=== PATIENT | female | born 1935 | race Caucasian/White ===

== ENCOUNTER 2017-11-07 22:05 | Inpatient (IN) | payer OTHER, MEDICAID ==
[~2017-11-07] VITALS: Ht 152.4 cm; Wt 77.3 kg
--- NOTE | ~2017-11-07 | WRIGHTHP ---
[place], [place] PATIENT HISTORY AND PHYSICAL EXAM NAME: RANJITH BELLE UNIT #: [id number] ROOM: 505 DOCTOR: SERGIO JENKINS MD BIRTHDATE: [birth year] DOS: 11/07/2017 HISTORY OF PRESENT ILLNESS: The patient states that she has been feeling poorly for the last few days with a low-grade fever. The patient denies having any chest pains, palpitations. Does not have any abdominal pain, nausea or any emesis. The patient came into the Emergency Room with a temperature 102.7, was noted to have an elevated white count of 18,000, was admitted with diagnosis of possible sepsis. The patient this morning is resting comfortably in no distress. PAST MEDICAL HISTORY: Significant for: 1. Benign hypertension. 2. Chronic lymphedema. 3. History of transient ischemic attack. MEDICATIONS: She is currently on are aspirin 325, Bumex 2 mg, KCl 10, lisinopril 20, lovastatin 10. SOCIAL HISTORY: Nonsmoker, does not use any alcohol. PHYSICAL EXAMINATION: GENERAL: She is awake and alert and oriented. VITAL SIGNS: Graph trend shows that she is febrile, T-max of 102.7, blood pressure 132/70, pulse of 86, respirations 14. LUNGS: Diminished breath sounds. HEART: Regular. CHEST: Lungs are clear. HEART: Regular. ABDOMEN: Obese, soft, nontender. EXTREMITIES: Bilateral lymphedema with excoriation of the skin with some mild cellulitis. The left lower leg appears to be bigger than the right one. ASSESSMENT AND PLAN: 1. Fever, elevated white cell count with possible sepsis. Blood cultures and urine cultures have been sent. The patient is placed on IV fluids and IV antibiotics. 2. Benign hypertension, controlled. Restart medications. 3. Stage 3 renal failure, possibly from the Bumex that she is on. We will discontinue Bumex and potassium supplementation will be given IV. [place], [place] PATIENT HISTORY AND PHYSICAL EXAM NAME: RANJITH BELLE UNIT #: [id number] ROOM: 505 DOCTOR: SERGIO JENKINS MD BIRTHDATE: [birth year] SERGIO JENKINS MD CM:HISPHYS:PATIENT HISTORY AND PHYSICAL EXAMINATION [id number] SERGIO JENKINS MD 11/08/17 1004 interface
--- NOTE | ~2017-11-07 | DS ---
[place], [place] DISCHARGE SUMMARY NAME: RANJITH BELLE [facility] #: [id number] UNIT #: [id number] ROOM: 505 DOCTOR: SERGIO JENKINS MD BIRTHDATE: [birth year] DOS: 11/10/2017 DIAGNOSES: 1. Elevated white cell count with fever, diagnosis of sepsis which has been ruled out with negative blood cultures. 2. Adult failure to thrive. 3. Benign hypertension. 4. Acute kidney disease. 5. Chronic lymphedema. HOSPITAL COURSE: This patient is 82 years old. The patient is very well known to us, comes in with fever, chills. Please refer H and P for details of the evaluation in the emergency room. The patient was admitted with sepsis. Cultures were both sent of urine and blood. These have come back negative. The patient was placed on IV antibiotics and IV fluids. Bumex was discontinued. Her white cell count is normalized. Her kidney functions have improved, so the IV fluids have been discontinued. The rapid flu was negative. She did have significant swelling of the left lower leg more than the right, so a venous Doppler was done, which showed no DVT. This morning, the patient was evaluated by PT who feels that she would benefit from skilled, but has refused. She has been walking with therapist here. We will discharge her to home today and consult the visiting nurses for home therapy. SERGIO JENKINS MD CM:DISCHARG [id number] SERGIO JENKINS MD 11/10/17 0934 interface
--- NOTE | ~2017-11-07 | PR ---
[place], [place] PROGRESS NOTE [id number] UN[facility] #: [id number] ROOM: 505 DOCTOR: LISA GARBER,LORAINE Lema BIRTHDATE: [birth year] DOS: 11/10/2017 SUBJECTIVE: The patient is doing fine. She does not have any complaints today. PHYSICAL EXAMINATION: VITAL SIGNS: Blood pressure is 141/88, pulse of 70, respirations 18, temperature 98.2. LUNGS: Clear. HEART: Regular. ABDOMEN: Obese, soft, nontender. EXTREMITIES: Decreased edema. LABORATORY DATA: White cell count is normalized. Kidney functions have normalized. Blood cultures showed no bacterial growth and urinalysis was culture but looks like it has never been sent. ASSESSMENT AND PLAN: 1. The patient with sepsis, which has been ruled out with negative blood cultures. 2. Acute kidney disease, possibly from a combination of dehydration and sepsis. The labs have improved. 3. Adult failure to thrive. The patient did walk with physical therapy. She has refused [place] [facility]. The plan therefore is to discharge her to home today. LORAINE GONZALEZ MD CM:PNTRANS [id number] LORAINE GONZALEZ MD 11/10/17 1516 interface
--- NOTE | ~2017-11-07 | PR ---
[place], [place] PROGRESS NOTE NAME: RANJITH BELLE [facility] #: [id number] UNIT #: [id number] ROOM: 505 DOCTOR: SERGIO JENKINS MD BIRTHDATE: [birth year] DOS: SUBJECTIVE: The patient is about the same, does not have any new complaints. She feels better. OBJECTIVE: VITAL SIGNS: Blood pressure is 137/76, pulse of 69, respirations 18, temperature 97.6. LUNGS: Clear. HEART: Regular. ABDOMEN: Obese, soft. EXTREMITIES: Without any edema. LABORATORY DATA: Glucose 82, BUN 15, creatinine 0.74, sodium 141, potassium 3.4, chloride 109, bicarbonate 26, calcium 8.2. WBC count is 8.7, hemoglobin 8.8, hematocrit 27.3, platelets 157. Ultrasound of the lower legs, no DVT. ASSESSMENT AND PLAN: 1. Elevated white cell count, fever, possible sepsis. Cultures are all pending. With antibiotics, patient's white cell count has improved, the fevers have subsided. 2. Acute kidney disease, possibly from sepsis versus dehydration versus acute tubular necrosis. Bumex is on hold and with IV fluids have been given the kidney functions have normalized. 3. Hypokalemia. Continue potassium in the IV. SERGIO JENKINS MD CM:PNTRANS [phone] SERGIO JENKINS MD 11/09/17 1105 interface
[2017-11-07 22:05] VITALS: BP 170/80
[~2017-11-07 22:05] MED LIST: ALENDRONATE SOD70 M1 PO; ASPIR-TRIN325 MG PO; BACTRIM DS 8001 TA1 PO; BUMETANIDE2 MG PO; CALCIUM WITH VI1 TAB PO; FISH OIL 1,2001 EAC1 PO; KCL PO; METOPROLOL SUC100 M2 PO; PRESERVISION1 SGL; PRINIVIL20 MG PO
[2017-11-07 22:54] LABS: HEMATOCRIT 34.4 % (37.0-47.0); HEMOGLOBIN 11.2 g/dl (12.0-16.0); MEAN CORPUSCULAR HGB CONC 32.6 g/dl (33.0-37.0); MEAN PLATELET VOLUME 9.9 fl (9.6-12.3); PLATELET COUNT AUTOMATED 213 10*3/uL (130-400); RED CELL DISTRI WIDTH 13.3 % (0-14.5); WHITE BLOOD COUNT 18.1 10*3/uL (4.8-10.8)
[2017-11-07 23:04] LABS: BILIRUBIN NEGATIVE (NEGATIVE); BLOOD TRACE-LYSED (NEGATIVE); CLARITY CLEAR (CLEAR); COLOR YELLOW (YELLOW); GLUCOSE NEGATIVE (NEGATIVE); KETONE 1+ (NEGATIVE); LEUKO ESTERASE NEGATIVE (NEGATIVE); NITRITE NEGATIVE (NEGATIVE); PH 7.5 (5.0-9.0); UROBILINOGEN 0.2 E.U./dl (0.2-1.0)
[2017-11-07 23:11] LABS: ALBUMIN 3.2 gm/dl (3.1-4.5); ALKALINE PHOSPHATASE 72 U/L (45-117); BUN 25 mg/dl (7-24); CHLORIDE 99 mmol/L (98-107); CREATININE 1.09 mg/dL (0.55-1.02); LIPASE 159 U/L (73-393); POTASSIUM 3.3 mmol/L (3.5-5.1); SGOT/AST 19 IU/L (3-35); SGPT/ALT 15 U/L (12-78); SODIUM 138 mmol/L (136-145); TOTAL PROTEIN 7.8 gm/dL (6.4-8.2)
[2017-11-07 23:12] LABS: PLATELET SUFFICIENCY NORMAL (NORMAL); TOTAL CELLS COUNTED 100 #CELLS
[2017-11-07 23:14] LABS: TROPONIN I < 0.015 ng/ml (<0.045)
[2017-11-07 23:27] LABS: BACTERIA TRACE
[2017-11-08 01:30] VITALS: BP 104/50
[2017-11-08] MEDS ORDERED: VITAMIN D31000 UNI1 PO (01:53)
[2017-11-08] MEDS ORDERED: LOVASTATIN10 MG PO (01:57)
[2017-11-08] MEDS ORDERED: VITAMIN B-122000 MCG PO (02:00)
[2017-11-08 08:00] VITALS: BP 99/46
[2017-11-08 12:00] VITALS: BP 99/42
[2017-11-08 16:00] VITALS: BP 95/46
[2017-11-08 19:45] VITALS: BP 98/48
[2017-11-09] VITALS: BP 133/79; BP 98/49
[2017-11-09 07:14] LABS: BASO % 0.1 % (0.0-1.0); HEMATOCRIT 27.3 % (37.0-47.0); HEMOGLOBIN 8.8 g/dl (12.0-16.0); LYMPH % 11.4 % (27.0-41.0); MEAN CELL VOLUME 87.2 fl (81.0-99.0); MEAN CORPUSCULAR HGB 28.1 pg (27.0-31.0); MEAN CORPUSCULAR HGB CONC 32.2 g/dl (33.0-37.0); MEAN PLATELET VOLUME 10.2 fl (9.6-12.3); MONO # 0.7 10*3/uL (0.1-1.0); MONO % 8.4 % (3.0-9.0); NEUT # 6.9 10*3/uL (2.3-7.9); NEUT % 79.8 % (47.0-73.0); PLATELET COUNT AUTOMATED 157 10*3/uL (130-400); RED BLOOD COUNT 3.13 10*6/uL (4.10-5.10); RED CELL DISTRI WIDTH 14.1 % (0-14.5); WHITE BLOOD COUNT 8.7 10*3/uL (4.8-10.8)
[2017-11-09 07:33] LABS: CHLORIDE 109 mmol/L (98-107); CREATININE 0.74 mg/dL (0.55-1.02); POTASSIUM 3.4 mmol/L (3.5-5.1); SODIUM 141 mmol/L (136-145)
[2017-11-09 07:43] LABS: BUN 15 mg/dl (7-24)
[2017-11-09 08:00] VITALS: BP 137/76
[2017-11-09 12:00] VITALS: BP 106/52
[2017-11-09 16:00] VITALS: BP 138/83
[2017-11-09 20:00] VITALS: BP 126/66
[2017-11-10] VITALS: BP 124/64
[2017-11-10 08:00] VITALS: BP 141/88
[2017-11-10] MEDS ORDERED: CEFUROXIME AXE250 MG PO (08:43)
== END 2017-11-10 14:54 | disposition home health service (06) | DRG 684 ==
LOC: ED 22:05 → EDHOLD 23:56 → 5E 23:56
PROVIDERS: Emergency Medicine Emergency Medical Services; Internal Medicine
DX: N17.9 Acute kidney failure, unspecified (principal); E87.6 Hypokalemia; R62.7 Adult failure to thrive; I10 Essential (primary) hypertension; I89.0 Lymphedema, not elsewhere classified; Z86.73 Personal history of transient ischemic attack (TIA), and cerebral infarction without residual deficits; Z79.82 Long term (current) use of aspirin; Z79.899 Other long term (current) drug therapy

== ENCOUNTER 2019-03-21 14:24 | Inpatient (IN) | payer OTHER, MEDICAID ==
[~2019-03-21] VITALS: Ht 152.4 cm; Wt 79.4 kg
--- NOTE | ~2019-03-21 | PR ---
[place], [place] PROGRESS NOTE NAME: RANJITH BELLE [facility] #: [id number] UNIT #: [id number] ROOM: 419 DOCTOR: SERGIO JENKINS MD BIRTHDATE: [birth year] DOS: 03/23/2019 SUBJECTIVE: The patient is in some discomfort this morning. She does not have any new complaints. OBJECTIVE: VITAL SIGNS: Graphic trend shows a pressure 106/63, pulse is 77, respirations 18, temperature 97.9. LUNGS: Diminished breath sounds. Clear. HEART: Regular. ABDOMEN: Obese, soft, nontender. EXTREMITIES: Without any edema. Chronic lymphedema noted. DIAGNOSTIC STUDIES: A CT scan of the lumbar spine showed mildly comminuted nondisplaced multiple fractures of the sacrum with degenerative joint disease. ASSESSMENT AND PLAN: 1. Acute lumbago after a fall from multiple sacral fractures. The patient's pain control is achieved with multiple medications. 2. Adult failure to thrive, may require short-term placement for rehab. The patient is refusing right now. PT evaluation has not been performed yet, we will see what they decide on. 3. Urinary tract infection. Urine culture is negative. Blood work was normal. SERGIO JENKINS MD CM:PNTRANS [id number] SERGIO JENKINS MD 03/24/19 0525 interface
--- NOTE | ~2019-03-21 | DS ---
[place], [place] DISCHARGE SUMMARY NAME: RANJITH BELLE [facility] #: [id number] UNIT #: [id number] ROOM: 419 DOCTOR: SERGIO JENKINS MD BIRTHDATE: [birth year] DOS: HOSPITAL COURSE: The patient is 83 years old, very well known to us, had a fall at home. Please refer to H and P for details. Was seen in the Emergency Room, X-rays were negative, came to the office, continued meds, was admitted with possibility of compression fracture. After admission, the patient had a CT of the lumbar spine, which did show multiple comminuted nondisplaced sacral fractures. The patient was treated conservatively with pain medications. Social service and PT/OT were consulted. The patient's PT did state that the patient would benefit from SNF placement. The patient has steadfastly refused it and has no intention to go to SNF and this morning, she feels fairly good. She is ambulating with a cane and wants to go home. DISCHARGE PLAN: Arrangements will be made for visiting nurses for home OT, PT and nursing care. Home medications remain the same. I have not given her any new medicines. I have not given her any pain medications because she has refused to take any here, so she will take Tylenol as an outpatient. SERGIO EJNKINS MD CM:DISCHARG [phone] SERGIO JENKINS MD 04/17/19 0125 interface
--- NOTE | ~2019-03-21 | PR ---
[place], [place] PROGRESS NOTE NAME: RANJITH BELLE [facility] #: [id number] UNIT #: [id number] ROOM: 419 DOCTOR: SERGIO JENKINS MD BIRTHDATE: [birth year] DOS: 03/25/2019 SUBJECTIVE: The patient is doing well, does not have any new complaints. PHYSICAL EXAMINATION: GENERAL: She is awake and alert and oriented. VITAL SIGNS: Blood pressure is 97/50, pulse of 59, respirations 18, temperature 98.4. LUNGS: Clear. HEART: Regular. ABDOMEN: Obese, soft, nontender. EXTREMITIES: Without any edema. BACK: Examination of her back is pretty much the same. Her pain is controlled. She is not taking any medicines at all. ASSESSMENT AND PLAN: Compression fracture of the sacrum with difficulty to ambulate and adult failure to thrive. She was awaiting placement, but she has refused to go to rehab and wants to go home. Visiting nurses will be consulted and the patient will be discharged today from [facility], PT, OT at home. SERGIO JENKINS MD CM:PNTRANS [phone] SERGIO JENKINS MD 03/25/19 0958 interface
--- NOTE | ~2019-03-21 | WRIGHTHP ---
[place], [place] PATIENT HISTORY AND PHYSICAL EXAM NAME: RANJITH BELLE [facility] #: [id number] UNIT #: [id number] ROOM: 419 DOCTOR: SERGIO JENKINS MD BIRTHDATE: [birth year] DOS: 03/21/2019 HISTORY OF PRESENT ILLNESS: The patient is 83 years old. The patient says that she was out taking her garbage out for some unknown reason. She fell backwards and developed acute pain in her back. She came to the Emergency Room on the with the complaints and x-rays were done and she did not have a fracture and she was sent home. The patient states that she has been continuing to get worse for the last several days, unable to ambulate and is now sitting in a wheelchair when she came into the office. She has significant pain and making it difficult for her to rest and she was brought in by friends. She does not have any chest pains, palpitations. Does not have any fever or chills. Does not have any abdominal pain, nausea, emesis. Does not have any urinary symptoms. Does not have any numbness or tingling of the lower legs. PAST MEDICAL HISTORY: Significant for: 1. Benign hypertension. 2. History of cerebrovascular accident. 3. Chronic lymphedema. 4. Mixed hyperlipidemia. MEDICATIONS: Bumex 2 mg, potassium 10, lisinopril 20, lovastatin 20, alendronate 70 once weekly, aspirin 325. SOCIAL HISTORY: Nonsmoker, does not use any alcohol. Lives at home alone. She has a dog, stays with her. She has 1 son who is grown. PHYSICAL EXAMINATION: GENERAL: She is awake and alert and oriented. VITAL SIGNS: Blood pressure is 129/60, pulse of 64, respirations 16, temperature 97.5. NECK: Supple. No lymph nodes. HEENT: Unremarkable. LUNGS: Diminished breath sounds. Clear. HEART: Regular. ABDOMEN: Obese, soft, nontender. EXTREMITIES: Without any edema other than chronic lymphedema that is noted. She has complaints of severe pain in the lower back. Lumbar and thoracic area diffusely tender. ASSESSMENT AND PLAN: 1. Acute lumbago following a fall, most likely from compression fracture. X-rays were negative, but we will go ahead and arrange for a CT of the lumbar spine. 2. Pain medications have been ordered. 3. Adult failure to thrive. She has been unable to ambulate at home and take care of herself, may require short-term placement. PT/OT and Social service has been consulted. 4. Benign hypertension, controlled. 5. Chronic lymphedema. Already on diuretics, which are being continued. Labs noted from yesterday. [place], [place] PATIENT HISTORY AND PHYSICAL EXAM NAME: RANJITH BELLE UNIT #: [id number] ROOM: 419 DOCTOR: SERGIO JENKINS MD BIRTHDATE: [birth year] SERGIO JENKINS MD CM:HISPHYS:PATIENT HISTORY AND PHYSICAL EXAMINATION 5 6 SERGIO JENKINS MD 03/22/19 0919 interface
[~2019-03-21 14:24] MED LIST changes: +CEFUROXIME AXE250 MG PO; +LOVASTATIN10 MG PO; +TYLENOL325 M1 PO; +VITAMIN B-122000 MCG PO; +VITAMIN D31000 UNI1 PO
[2019-03-21 14:25] VITALS: BP 151/70
[2019-03-21 14:43] LABS: HEMOGLOBIN 12.7 g/dl (12.0-16.0)
[2019-03-21 15:01] LABS: BUN 18 mg/dl (7-24); CHLORIDE 104 mmol/L (98-107); CREATININE 0.82 mg/dL (0.55-1.02); POTASSIUM 3.5 mmol/L (3.5-5.1); SODIUM 140 mmol/L (136-145)
[2019-03-21 15:05] LABS: BASO % 0.3 % (0.0-1.0); HEMATOCRIT 38.2 % (37.0-47.0); LYMPH # 1.5 10*3/uL (1.3-4.4); LYMPH % 21.1 % (27.0-41.0); MEAN CELL VOLUME 88.4 fl (81.0-99.0); MEAN CORPUSCULAR HGB 29.4 pg (27.0-31.0); MEAN CORPUSCULAR HGB CONC 33.2 g/dl (33.0-37.0); MEAN PLATELET VOLUME 10.2 fl (9.6-12.3); MONO # 0.8 10*3/uL (0.1-1.0); MONO % 10.7 % (3.0-9.0); NEUT # 4.8 10*3/uL (2.3-7.9); NEUT % 67.5 % (47.0-73.0); PLATELET COUNT AUTOMATED 215 10*3/uL (130-400); RED BLOOD COUNT 4.32 10*6/uL (4.10-5.10); RED CELL DISTRI WIDTH 14.7 % (0-14.5); WHITE BLOOD COUNT 7.1 10*3/uL (4.8-10.8)
[2019-03-21 15:35] LABS: BILIRUBIN NEGATIVE (NEGATIVE); BLOOD NEGATIVE (NEGATIVE); CLARITY CLEAR (CLEAR); COLOR YELLOW (YELLOW); GLUCOSE NEGATIVE (NEGATIVE); KETONE NEGATIVE (NEGATIVE); LEUKO ESTERASE 1+ (NEGATIVE); NITRITE NEGATIVE (NEGATIVE)
[2019-03-21 15:43] LABS: BACTERIA 2+
[2019-03-21 15:44] LABS: WBC 16-20 wbc/hpf (0-5)
--- NOTE | 2019-03-21 15:58 | NUR ---
THE PT IS A&OX4 AND DENIES ANY WOUNDS. HER FEET WERE EXAMINED WITH NO WOUNDS NOTED
--- NOTE | 2019-03-21 16:27 | NUR ---
THE PT RECIEVED HER MEAL TRAY
[2019-03-21 16:40] VITALS: BP 140/74
--- NOTE | 2019-03-21 17:20 | NUR ---
Time: 1719 A 83 year old FEMALE admitted to under services of DR. GREGORY GARBER,SERGIO. Pt. arrived via stretcher from ER. Chief complaint: INABILITY TO AMBULATE/BACK PAIN. COMPA BELLE
[2019-03-21 17:30] VITALS: BP 155/69
--- NOTE | 2019-03-21 19:11 | NUR ---
KPAD TAKEN INTO ROOM, PT REFUSES AT THIS TIME. SHE STATES HEAT WASN'T WORKING AT HOME. MACHINE LEFT IN ROOM AT BEDSIDE. WILL OFFER AGAIN AT ANOTHER TIME.
[2019-03-21 20:00] VITALS: BP 112/52
--- NOTE | 2019-03-21 20:02 | NUR ---
ASSISTED TO RESTROOM WITH SHAJI GAONA. PATIENT C/O PAIN BUT REFUSES ANY PAIN MEDICATION. SON AT BEDSIDE. BED IN LOWEST POSITION, CALL LIGHT IN REACH
--- NOTE | 2019-03-21 23:19 | NUR ---
ASSUMED CARE OF PT AT THIS TIME. PATIENT C/O PAIN IN BACK, BUT IS REFUSING TO TAKE ANY MEDICATIONS OFFERED. ALSO REFUSING TO USE KPAD. RN EDUCATED PT ON AVAILABLE PRN MEDICATIONS AND TO USE CALL LIGHT TO NOTIFY RN IF SHE CHANGED HER MIND. PT ALSO OFFERED TUBIGRIPS FOR BLL EDEMA. STATES SHE WILL CONSIDER WEARING THEM IN THE AM. WILL MONITOR.
[2019-03-22] VITALS: BP 129/60
--- NOTE | 2019-03-22 04:26 | NUR ---
PATIENT ASSISTED OOB UP INTO BATHROOM AND BACK INTO BED. PT REQUIRES AT LEAST A 2 ASSIST SHE IS VERY WEAK. PATIENT REPOSITIONED IN BED FOR COMFORT. PT STILL DENIES NEED FOR PAIN MEDICATION, EVEN THOUGH SHE IS C/O PAIN. BED LEFT LOCKED IN LOW POSITION, BED ALARM INTACT, CALL LIGHT IN REACH.
--- NOTE | 2019-03-22 06:27 | NUR ---
MRI PAPERWORK FILLED OUT PER POLICY. PATIENT STATES SHE HAS A STEEL PLATE AND 9 SCREWS IN RLE. ATTEMPTED TO CALL MRI TO UPDATE THEM ON THIS. NO ANSWER. WILL NOTIFY .
--- NOTE | 2019-03-22 07:28 | NUR ---
MESSAGE LEFT WITH MRI REGARDING PT'S SCHEDULED TEST. CALL BACK NUMBER & AM SHIFT RN NAME ALSO LEFT.
[2019-03-22 08:00] VITALS: BP 119/63
--- NOTE | 2019-03-22 10:57 | NUR ---
DR JENKINS NOTIFIED OF CT SCAN RESULTS.
[2019-03-22 12:00] VITALS: BP 129/70
--- NOTE | 2019-03-22 13:30 | NUR ---
Non Destructive Testing Supervisor in to talk to patient. Patient states lives at home alone with her son occasionally checking in on her. There are 0 steps in the home. Physician: Dr. Mica Grant Pharmacy: [facility] health services: would like [facility] on discharge Patient's level of ADLs: MINIMAL ASSIST Patient has working utilities: yes DME: cane, walker Follow-up physician's appointment after d/c: she prefers to make her own follow up appt after discharge Does patient want to access PORTAL?: no Discharge plan discussed with patient. She lives at home alone with her son occasionally checking in on her. She is independent in her ADLs and ambulates with either a cane or walker. Discussed short term SNF and she refuses as she has a dog at home. Discussed home health care services and she is agreeable. When provided with a list of agencies she chose [facility]. When medically stable she will be discharged to home with [facility] services. NOEMY DOWLING
--- NOTE | 2019-03-22 14:59 | NUR ---
Pt was approached for PT evaluation and reports she is in "too much pain" to attempt with request for evaluation to be completed at later date. Elizabeth Evans, PT
[2019-03-22 16:00] VITALS: BP 127/81
--- NOTE | 2019-03-22 19:33 | NUR ---
PATIENT RESTING IN BED WITH VISITORS AT BEDSIDE. REFUSING PAIN MEDICATION AT THIS TIME DESPITE C/O PAIN IN BACK. BED IN LOWEST POSITION, CALL LIGHT IN REACH
[2019-03-22 20:00] VITALS: BP 148/57
[2019-03-23] VITALS: BP 106/63
--- NOTE | 2019-03-23 00:35 | NUR ---
PATIENT RESTING IN BED WITH NO S/S OF DISTRESS. BED IN LOWEST POSITION, BED ALARM ON, CALL LIGHT IN REACH
--- NOTE | 2019-03-23 00:44 | NUR ---
24 HR chart check completed.
--- NOTE | 2019-03-23 01:19 | NUR ---
MEDICATED WITH PRN TYLENOL FOR C/O PAIN. WILL MONITOR
--- NOTE | 2019-03-23 06:05 | NUR ---
PATIENT RESTING WITH NO S/S OF DISTRESS. BED IN LOWEST POSITION, CALL LIGHT IN REACH
--- NOTE | 2019-03-23 07:18 | NUR ---
PHYSICAL THERAPY Nursing screen received. PT orders also received. Thank you. María Mcdonald,PT
[2019-03-23 08:00] VITALS: BP 123/59
--- NOTE | 2019-03-23 09:12 | NUR ---
PHYSICAL THERAPY Patient evaluated on 4, full evaluation to follow. Continue with PT as per plan of care with fall, sacral fractures with lumbar/sacral pain radiating to left LE and acute debility precautions. Will require SNF. PAtient is moderate complexity via chart review, tests and evaluation: [id number]. Thank you for this referral. María Mcdonald,PT
--- NOTE | 2019-03-23 09:15 | NUR ---
Patient evaluated on 4TH floor with full eval to follow. for occupational therapy services. Preacuations: fall risk, alarms, sacral fxs with lumber/sacral pain. moderate complexity level 82790. Recommend SNF. Work on functional mobility, bed mobility, and balance. THank you for this referral, Kim Kaminski OTR/L
--- NOTE | 2019-03-23 10:00 | NUR ---
Shoe Folder in to see patient. Discussed short term SNF and she refuses. Discussed home health care services and she is agreeable. When provided with a list of agencies she chose [facility]. When medically stable she will be discharged to home with [facility] services.
[2019-03-23 12:00] VITALS: BP 111/58
--- NOTE | 2019-03-23 14:24 | NUR ---
Called to patient's room. Patient adamantly refuses SNF. She states she wants to go home and take care of her dog. She remains agreeable to home health care services.
[2019-03-23 16:00] VITALS: BP 105/61
--- NOTE | 2019-03-23 17:06 | NUR ---
PT RESTING IN BED WITH NO SIGNS OF DISTRESS. VITAL SIGNS STABLE. PT ADAMENT THAT SHE IS NOT GOING TO SNF. VSS. WILL CONTINUE TO MONITOR.
--- NOTE | 2019-03-23 19:36 | NUR ---
PATIENT RESTING IN BED WITH NO NEEDS MADE. REFUSING PAIN MEDICATION AT THIS TIME. WILL MONITOR. BED IN LOWEST POSITION,CALL LIGHT IN REACH
[2019-03-23 20:00] VITALS: BP 91/48
[2019-03-23 20:19] VITALS: BP 110/52
[2019-03-24] VITALS: BP 118/62
--- NOTE | 2019-03-24 01:28 | NUR ---
PATIENT RESTING IN BED WITH EYES CLOSED. RESPS EASY AND REGULAR. NO S/S OF DISTRESS. BED IN LOWEST POSITION, BED ALARM ON, CALL LIGHT IN REACH
[2019-03-24 08:00] VITALS: BP 95/56
--- NOTE | 2019-03-24 08:00 | NUR ---
Discussed with Dr. Grant patient's request for a hospital bed and required documentation.
--- NOTE | 2019-03-24 09:00 | NUR ---
Doctor Of Chiropractic in to see patient. Discussed short term SNF and she adamantly refuses. She remains agreeable to home health care services. When medically stable she will be discharged to home with [facility] services.
[2019-03-24 12:00] VITALS: BP 92/48
--- NOTE | 2019-03-24 13:45 | NUR ---
PHYSICAL THERAPY Patient seen this pm 1:1 for therapy visit and was supine in bed upon therapist arrival. Patient presents with increased L LE edema and reports no c/o's pain at rest. Patient transfers supine to sit EOB Mod A and tolerates static EOB sit x several minutes, SBA. Patient then performed several sit to stand transfers, RELIEF PHARMACIST/MOD prior to ambulating RELIEF PHARMACIST/MOD, 10'x 1, demonstrating very cautious, antalgic gait pattern. Patient very unsteady during 180 degree turn and fatigues quickly upon return to bed. Patient remained supine in bed with call light, tray table, telephone and bed alarm for safety. Will continue per POC as tolerated, total treatment time 14 minutes. Cleve Balbuena, SHANK MAKER
--- NOTE | 2019-03-24 13:54 | NUR ---
Spoke to Mirna from [facility] regarding home health order. She is able to look in [employer] for the information she needs. Will fax face to face when available.
--- NOTE | 2019-03-24 14:00 | NUR ---
OT NOTE Pt was seen this P.M. 1:1 for 15 minute OT session. Upon arrival pt was supine in bed. Pt identified by name and and had complaints of 5/10 low back pain. Pt presented to therapy with mod edema in LLE and min edema in RLE. Pt transferred supine to sit EOB with Theo for assist with BLE. Sit to stand completed from bed level with Theo PLUMBER MAINTENANCE. Challenged pt's static standing tolerance needed for increased I in self care tasks and functional transfers. Pt was able to tolerate aprox 2 minutes before sitting due to fatigue. Functional mobility completed to the bedside commode and back with modA PLUMBER MAINTENANCE. Pt transferred back into bed sit to supine with modA and maxA X 2 for repositioning in bed. Pt was left supine in bed with call light in hand, tray table in place, and bed alarm activated for safety. Continue with rec D/C plan to SNF. PRECIOUS Guerra/Malgorzata
--- NOTE | 2019-03-24 15:10 | NUR ---
Received call from Mirna at [facility]. Patient's [employer] insurance is up today. Spoke to patient regarding renewing insurance and she forgot all about it. She wants to continue it and will pay it when she gets her check. Asked Mirna if she could use her [place] Medicaid. Mirna checking into it.
[2019-03-24 15:50] VITALS: BP 98/54
[2019-03-24 16:00] VITALS: BP 98/50
[2019-03-24 20:00] VITALS: BP 100/44; BP 100/50
--- NOTE | 2019-03-24 20:15 | NUR ---
24 HOUR CHART CHECK COMPLETE.
[2019-03-25] VITALS: BP 97/50
--- NOTE | 2019-03-25 08:30 | NUR ---
Patient resting quietly with no c/o discomfort. Respirations easy and regular. Vital signs stable. No overt distress. COMPA BELLE R
[2019-03-25 08:33] VITALS: BP 135/60
[2019-03-25 11:54] VITALS: BP 136/61
--- NOTE | 2019-03-25 13:37 | NUR ---
Discharge instructions reviewed with patient/family. Patient receptive and verbalizes understanding. Follow-up care arranged. Written instructions given to patient/family. COMPA BELLE
--- NOTE | 2019-03-27 07:35 | NUR ---
PHYSICAL THERAPY CO-SIGN I approve of the Phyical Therapy notes written above. DENTON MURRELL PT
--- NOTE | 2019-03-27 08:07 | NUR ---
OCCUPATIONAL THERAPY CO-SIGN I approve of the Occupational Therapy notes written above. SPRING MATHEW OTR/Malgorzata
== END 2019-03-25 01:29 | disposition home health service (06) | DRG 552 ==
LOC: ED 14:24 → EDHOLD 14:42 → 4E 14:42
PROVIDERS: Emergency Medicine; ADMIT Internal Medicine
DX: S32.10XA Unspecified fracture of sacrum, initial encounter for closed fracture (principal); N39.0 Urinary tract infection, site not specified; I10 Essential (primary) hypertension; W18.39XA Other fall on same level, initial encounter; E78.2 Mixed hyperlipidemia; I89.0 Lymphedema, not elsewhere classified; R62.7 Adult failure to thrive; Z88.0 Allergy status to penicillin; Z88.5 Allergy status to narcotic agent; Z88.1 Allergy status to other antibiotic agents; Z88.8 Allergy status to other drugs, medicaments and biological substances; Z98.42 Cataract extraction status, left eye; Z90.49 Acquired absence of other specified parts of digestive tract; Y93.89 Activity, other specified; Y92.89 Other specified places as the place of occurrence of the external cause; Y99.8 Other external cause status; Z82.3 Family history of stroke; Z79.82 Long term (current) use of aspirin

== ENCOUNTER 2020-10-30 20:42 | Inpatient (IN) | payer MEDICARE ==
[~2020-10-30] VITALS: Ht 157.4 cm; Wt 93.2 kg
[~2020-10-30 20:42] MED LIST changes: +PRINIVIL10 MG PO; -PRINIVIL20 MG PO
[2020-10-30 20:49] VITALS: BP 122/42
[2020-10-30 22:06] LABS: HEMATOCRIT 38.1 % (37.0-47.0); MEAN CELL VOLUME 88.8 fl (81.0-99.0); MEAN CORPUSCULAR HGB 30.3 pg (27.0-31.0); MEAN CORPUSCULAR HGB CONC 34.1 g/dl (33.0-37.0); MEAN PLATELET VOLUME 10.2 fl (9.6-12.3); PLATELET COUNT AUTOMATED 276 10*3/uL (130-400); RED BLOOD COUNT 4.29 10*6/uL (4.10-5.10); RED CELL DISTRI WIDTH 13.5 % (0-14.5); WHITE BLOOD COUNT 27.7 10*3/uL (4.8-10.8)
[2020-10-30 22:10] LABS: BILIRUBIN Negative (Negative); BLOOD 2+ (Negative); CLARITY Turbid (Clear); COLOR Yellow (Yellow); GLUCOSE Negative (Negative); KETONE Negative (Negative); LEUKO ESTERASE 3+ (Negative); NITRITE Negative (Negative); UROBILINOGEN 0.2 E.U./dl (0.0-1.0)
[2020-10-30 22:25] LABS: ALBUMIN 2.1 gm/dl (3.1-4.5); ALKALINE PHOSPHATASE 103 U/L (45-117); BUN 83 mg/dl (7-24); CHLORIDE 100 mmol/L (98-107); CREATININE 2.27 mg/dL (0.55-1.02); LIPASE 102 U/L (73-393); POTASSIUM 5.3 mmol/L (3.5-5.1); SGOT/AST 21 IU/L (3-35); SGPT/ALT 33 U/L (12-78); SODIUM 128 mmol/L (136-145); TOTAL PROTEIN 7.3 gm/dL (6.4-8.2)
[2020-10-30 22:25] LABS: WBC TNTC wbc/hpf (0-5)
[2020-10-30 22:27] LABS: TROPONIN I < 0.015 ng/ml (<0.045)
[2020-10-30 22:44] LABS: PLATELET SUFFICIENCY NORMAL (NORMAL); TOTAL CELLS COUNTED 100 #CELLS
[2020-10-30 23:05] VITALS: BP 98/44
[2020-10-31] VITALS (9 sets, daily range): BP systolic 85–101; BP diastolic 33–61
[2020-10-31 02:31] LABS: CREATININE 1.96 mg/dL (0.55-1.02); POTASSIUM 4.6 mmol/L (3.5-5.1)
[2020-10-31 05:39] LABS: CREATININE 1.83 mg/dL (0.55-1.02); POTASSIUM 4.3 mmol/L (3.5-5.1)
[2020-10-31 16:53] LABS: URINE CREATININE RANDOM 54.7 mg/dL
[2020-10-31] MEDS ORDERED: FEROSUL325 MG PO (17:41)
[2020-10-31] MEDS ORDERED: POTASSIUM CHLO10 MEQ PO (17:42)
[2020-11-01] VITALS: BP 94/49
[2020-11-01 06:29] LABS: HEMATOCRIT 30.7 % (37.0-47.0); MEAN CELL VOLUME 90.6 fl (81.0-99.0); MEAN CORPUSCULAR HGB 29.5 pg (27.0-31.0); MEAN CORPUSCULAR HGB CONC 32.6 g/dl (33.0-37.0); MEAN PLATELET VOLUME 10.4 fl (9.6-12.3); PLATELET COUNT AUTOMATED 229 10*3/uL (130-400); RED BLOOD COUNT 3.39 10*6/uL (4.10-5.10); RED CELL DISTRI WIDTH 13.8 % (0-14.5); WHITE BLOOD COUNT 17.5 10*3/uL (4.8-10.8)
[2020-11-01 06:45] LABS: CREATININE 1.06 mg/dL (0.55-1.02)
[2020-11-01 07:18] LABS: DOHLE BODIES FEW; PLATELET SUFFICIENCY NORMAL (NORMAL); TOTAL CELLS COUNTED 100 #CELLS; TOXIC GRANULATION SLIGHT
[2020-11-01 07:19] LABS: BURR CELLS FEW
[2020-11-01 08:00] VITALS: BP 108/50
[2020-11-01 12:00] VITALS: BP 104/62
[2020-11-01 16:00] VITALS: BP 91/50
[2020-11-01 20:00] VITALS: BP 117/52
[2020-11-02] VITALS: BP 120/60
[2020-11-02 07:29] LABS: CHLORIDE 111 mmol/L (98-107); CREATININE 0.71 mg/dL (0.55-1.02); POTASSIUM 3.9 mmol/L (3.5-5.1); SODIUM 140 mmol/L (136-145)
[2020-11-02 07:30] LABS: BUN 35 mg/dl (7-24)
[2020-11-02 08:00] VITALS: BP 121/56
[2020-11-02 12:00] VITALS: BP 103/45; BP 117/52
[2020-11-02 13:07] LABS: MEAN CELL VOLUME 92.5 fl (81.0-99.0); MEAN CORPUSCULAR HGB 29.9 pg (27.0-31.0); MEAN CORPUSCULAR HGB CONC 32.3 g/dl (33.0-37.0); MEAN PLATELET VOLUME 10.2 fl (9.6-12.3); PLATELET COUNT AUTOMATED 224 10*3/uL (130-400); RED BLOOD COUNT 3.35 10*6/uL (4.10-5.10); RED CELL DISTRI WIDTH 14.1 % (0-14.5)
[2020-11-02 13:31] LABS: TOTAL CELLS COUNTED 100 #CELLS
[2020-11-02 13:32] LABS: OVALOCYTES FEW; PLATELET SUFFICIENCY NORMAL (NORMAL); TOXIC GRANULATION SLIGHT; VACUOLATION OF NEUTROPHILS SLIGHT
[2020-11-02 16:00] VITALS: BP 117/52
[2020-11-02 20:00] VITALS: BP 106/45
[2020-11-03] VITALS: BP 111/49
[2020-11-03 06:47] LABS: HEMATOCRIT 32.4 % (37.0-47.0); MEAN CELL VOLUME 91.3 fl (81.0-99.0); MEAN CORPUSCULAR HGB 29.6 pg (27.0-31.0); MEAN CORPUSCULAR HGB CONC 32.4 g/dl (33.0-37.0); MEAN PLATELET VOLUME 9.8 fl (9.6-12.3); PLATELET COUNT AUTOMATED 205 10*3/uL (130-400); RED BLOOD COUNT 3.55 10*6/uL (4.10-5.10); RED CELL DISTRI WIDTH 13.8 % (0-14.5); WHITE BLOOD COUNT 11.6 10*3/uL (4.8-10.8)
[2020-11-03 07:03] LABS: ALBUMIN 1.8 gm/dl (3.1-4.5); ALKALINE PHOSPHATASE 92 U/L (45-117); CHLORIDE 109 mmol/L (98-107); CREATININE 0.67 mg/dL (0.55-1.02); POTASSIUM 3.7 mmol/L (3.5-5.1); SGOT/AST 43 IU/L (3-35); SGPT/ALT 43 U/L (12-78); SODIUM 140 mmol/L (136-145); TOTAL PROTEIN 5.6 gm/dL (6.4-8.2)
[2020-11-03 07:04] LABS: BUN 22 mg/dl (7-24)
[2020-11-03 07:41] LABS: PLATELET SUFFICIENCY NORMAL (NORMAL); TOTAL CELLS COUNTED 100 #CELLS; TOXIC GRANULATION SLIGHT
[2020-11-03 07:56] VITALS: BP 133/55
[2020-11-03 08:00] VITALS: BP 133/55
[2020-11-03 11:33] LABS: HEMATOCRIT 31.2 % (37.0-47.0); MEAN CELL VOLUME 90.7 fl (81.0-99.0); MEAN CORPUSCULAR HGB 29.7 pg (27.0-31.0); MEAN CORPUSCULAR HGB CONC 32.7 g/dl (33.0-37.0); MEAN PLATELET VOLUME 9.6 fl (9.6-12.3); PLATELET COUNT AUTOMATED 190 10*3/uL (130-400); RED BLOOD COUNT 3.44 10*6/uL (4.10-5.10); RED CELL DISTRI WIDTH 13.9 % (0-14.5); WHITE BLOOD COUNT 10.3 10*3/uL (4.8-10.8)
[2020-11-03 11:50] LABS: PLATELET SUFFICIENCY NORMAL (NORMAL); TOTAL CELLS COUNTED 100 #CELLS; TOXIC GRANULATION SLIGHT
[2020-11-03 16:00] VITALS: BP 101/44; BP 153/65
[2020-11-03 16:09] VITALS: BP 133/55
[2020-11-04] VITALS: BP 97/51
[2020-11-04 08:00] VITALS: BP 121/51
[2020-11-04 16:00] VITALS: BP 114/50
[2020-11-05] VITALS: BP 105/50
[2020-11-05 06:52] LABS: HEMATOCRIT 30.3 % (37.0-47.0); MEAN CELL VOLUME 92.1 fl (81.0-99.0); MEAN CORPUSCULAR HGB 29.2 pg (27.0-31.0); MEAN CORPUSCULAR HGB CONC 31.7 g/dl (33.0-37.0); MEAN PLATELET VOLUME 9.9 fl (9.6-12.3); PLATELET COUNT AUTOMATED 193 10*3/uL (130-400); RED BLOOD COUNT 3.29 10*6/uL (4.10-5.10); RED CELL DISTRI WIDTH 13.6 % (0-14.5); WHITE BLOOD COUNT 10.6 10*3/uL (4.8-10.8)
[2020-11-05 07:26] LABS: ALBUMIN 1.7 gm/dl (3.1-4.5); ALKALINE PHOSPHATASE 76 U/L (45-117); BUN 20 mg/dl (7-24); CHLORIDE 102 mmol/L (98-107); CREATININE 0.64 mg/dL (0.55-1.02); POTASSIUM 3.4 mmol/L (3.5-5.1); SGOT/AST 43 IU/L (3-35); SGPT/ALT 48 U/L (12-78); SODIUM 137 mmol/L (136-145); TOTAL PROTEIN 5.3 gm/dL (6.4-8.2)
[2020-11-05 07:42] LABS: PLATELET SUFFICIENCY NORMAL (NORMAL); TOTAL CELLS COUNTED 100 #CELLS
[2020-11-05 08:00] VITALS: BP 138/65
[2020-11-05] MEDS ORDERED: LEVOFLOXACIN750 M2 PO (10:13)
== END 2020-11-05 14:54 | disposition other institution (70) | DRG 871 ==
LOC: ED 20:42 → 5E 10-31 02:12 → EDHOLD 10-31 02:12 → 5E 10-31 10:47
PROVIDERS: Emergency Medicine; Internal Medicine; Internal Medicine Nephrology; Podiatrist Foot & Ankle Surgery; ADMIT Internal Medicine; ATTEND Internal Medicine
PROC: 0HBRXZZ Excision of Toe Nail, External Approach (ICD-10-PCS; principal; 2020-11-01)
PROC: 0HBRXZZ Excision of Toe Nail, External Approach (ICD-10-PCS; 2020-11-01)
PROC: 0HBRXZZ Excision of Toe Nail, External Approach (ICD-10-PCS; 2020-11-01)
PROC: 0HBRXZZ Excision of Toe Nail, External Approach (ICD-10-PCS; 2020-11-01)
PROC: 0HBRXZZ Excision of Toe Nail, External Approach (ICD-10-PCS; 2020-11-01)
PROC: 0HBRXZZ Excision of Toe Nail, External Approach (ICD-10-PCS; 2020-11-01)
PROC: 0HBRXZZ Excision of Toe Nail, External Approach (ICD-10-PCS; 2020-11-01)
PROC: 0HBRXZZ Excision of Toe Nail, External Approach (ICD-10-PCS; 2020-11-01)
PROC: 0HBRXZZ Excision of Toe Nail, External Approach (ICD-10-PCS; 2020-11-01)
PROC: 0HBRXZZ Excision of Toe Nail, External Approach (ICD-10-PCS; 2020-11-01)
DX: A41.59 Other Gram-negative sepsis (principal); E43 Unspecified severe protein-calorie malnutrition; L03.116 Cellulitis of left lower limb; L03.115 Cellulitis of right lower limb; E87.1 Hypo-osmolality and hyponatremia; N17.9 Acute kidney failure, unspecified; N30.01 Acute cystitis with hematuria; L03.114 Cellulitis of left upper limb; Y99.8 Other external cause status; Z88.6 Allergy status to analgesic agent; E87.5 Hyperkalemia; E66.01 Morbid (severe) obesity due to excess calories; I87.2 Venous insufficiency (chronic) (peripheral); E78.2 Mixed hyperlipidemia; M81.0 Age-related osteoporosis without current pathological fracture; R62.7 Adult failure to thrive; N18.9 Chronic kidney disease, unspecified; S81.802A Unspecified open wound, left lower leg, initial encounter; S81.801A Unspecified open wound, right lower leg, initial encounter; S31.829A Unspecified open wound of left buttock, initial encounter; S31.819A Unspecified open wound of right buttock, initial encounter; S61.402A Unspecified open wound of left hand, initial encounter; R26.2 Difficulty in walking, not elsewhere classified; M54.9 Dorsalgia, unspecified; E86.0 Dehydration; B35.1 Tinea unguium; R33.9 Retention of urine, unspecified; E88.09 Other disorders of plasma-protein metabolism, not elsewhere classified; I12.9 Hypertensive chronic kidney disease with stage 1 through stage 4 chronic kidney disease, or unspecified chronic kidney disease; Z20.822 Contact with and (suspected) exposure to COVID-19; I73.9 Peripheral vascular disease, unspecified; B96.20 Unspecified Escherichia coli [E. coli] as the cause of diseases classified elsewhere; Z88.0 Allergy status to penicillin; Z88.8 Allergy status to other drugs, medicaments and biological substances; Z98.42 Cataract extraction status, left eye; Z90.49 Acquired absence of other specified parts of digestive tract; Z68.36 Body mass index [BMI] 36.0-36.9, adult; X58.XXXA Exposure to other specified factors, initial encounter; Y93.89 Activity, other specified; Y92.89 Other specified places as the place of occurrence of the external cause

== ENCOUNTER 2020-11-08 13:22 | Observation (INO) | payer MEDICARE ==
[~2020-11-08] VITALS: Ht 160 cm; Wt 94.8 kg
[~2020-11-08 13:22] MED LIST changes: +FEROSUL325 MG PO; +LEVOFLOXACIN750 M2 PO; +POTASSIUM CHLO10 MEQ PO
[2020-11-08 13:26] VITALS: BP 90/48
[2020-11-08 14:16] LABS: BASO % 0.2 % (0.0-1.0); HEMATOCRIT 32.1 % (37.0-47.0); LYMPH # 0.8 10*3/uL (1.3-4.4); LYMPH % 8.5 % (27.0-41.0); MEAN CELL VOLUME 93.9 fl (81.0-99.0); MEAN CORPUSCULAR HGB 29.2 pg (27.0-31.0); MEAN CORPUSCULAR HGB CONC 31.2 g/dl (33.0-37.0); MEAN PLATELET VOLUME 9.9 fl (9.6-12.3); MONO # 0.8 10*3/uL (0.1-1.0); MONO % 8.5 % (3.0-9.0); NEUT # 7.9 10*3/uL (2.3-7.9); NEUT % 81.2 % (47.0-73.0); PLATELET COUNT AUTOMATED 238 10*3/uL (130-400); RED BLOOD COUNT 3.42 10*6/uL (4.10-5.10); RED CELL DISTRI WIDTH 13.9 % (0-14.5); WHITE BLOOD COUNT 9.8 10*3/uL (4.8-10.8)
[2020-11-08 14:28] LABS: ALBUMIN 1.8 gm/dl (3.1-4.5); CREATININE 1.35 mg/dL (0.55-1.02); POTASSIUM 3.5 mmol/L (3.5-5.1); TOTAL PROTEIN 5.6 gm/dL (6.4-8.2)
[2020-11-08] MEDS ORDERED: BUMETANIDE1 MG PO (18:43)
[2020-11-08 19:11] LABS: BASO % 0.3 % (0.0-1.0); HEMATOCRIT 30.4 % (37.0-47.0); LYMPH # 1.3 10*3/uL (1.3-4.4); LYMPH % 11.2 % (27.0-41.0); MEAN CELL VOLUME 91.3 fl (81.0-99.0); MEAN CORPUSCULAR HGB 29.7 pg (27.0-31.0); MEAN CORPUSCULAR HGB CONC 32.6 g/dl (33.0-37.0); MEAN PLATELET VOLUME 10.2 fl (9.6-12.3); MONO % 9.1 % (3.0-9.0); NEUT % 77.9 % (47.0-73.0); PLATELET COUNT AUTOMATED 248 10*3/uL (130-400); RED BLOOD COUNT 3.33 10*6/uL (4.10-5.10); RED CELL DISTRI WIDTH 13.9 % (0-14.5); WHITE BLOOD COUNT 11.5 10*3/uL (4.8-10.8)
[2020-11-08 19:22] LABS: CREATININE 1.4 mg/dL (0.55-1.02); POTASSIUM 3.8 mmol/L (3.5-5.1)
[2020-11-08 20:00] VITALS: BP 95/55
[2020-11-08 21:30] VITALS: BP 70/28
[2020-11-09] VITALS (7 sets, daily range): BP systolic 78–96; BP diastolic 38–48
[2020-11-10] VITALS: BP 89/44
[2020-11-10 08:00] VITALS: BP 98/50
[2020-11-10 12:00] VITALS: BP 96/49
[2020-11-10 13:19] LABS: BASO % 0.1 % (0.0-1.0); HEMATOCRIT 30.3 % (37.0-47.0); LYMPH % 13.7 % (27.0-41.0); MEAN CORPUSCULAR HGB 29.2 pg (27.0-31.0); MEAN CORPUSCULAR HGB CONC 30.4 g/dl (33.0-37.0); MEAN PLATELET VOLUME 9.7 fl (9.6-12.3); MONO % 12.5 % (3.0-9.0); NEUT # 5.5 10*3/uL (2.3-7.9); NEUT % 72.6 % (47.0-73.0); PLATELET COUNT AUTOMATED 266 10*3/uL (130-400); RED BLOOD COUNT 3.15 10*6/uL (4.10-5.10); RED CELL DISTRI WIDTH 14.2 % (0-14.5); WHITE BLOOD COUNT 7.6 10*3/uL (4.8-10.8)
[2020-11-10 13:22] LABS: MEAN CELL VOLUME 96.2 fl (81.0-99.0)
[2020-11-10 16:00] VITALS: BP 106/59
[2020-11-10 20:00] VITALS: BP 94/42
[2020-11-11] VITALS: BP 98/54
[2020-11-11 06:36] LABS: BASO % 0.3 % (0.0-1.0); HEMATOCRIT 28.5 % (37.0-47.0); LYMPH % 14.7 % (27.0-41.0); MEAN CELL VOLUME 94.1 fl (81.0-99.0); MEAN CORPUSCULAR HGB 29.4 pg (27.0-31.0); MEAN CORPUSCULAR HGB CONC 31.2 g/dl (33.0-37.0); MEAN PLATELET VOLUME 9.3 fl (9.6-12.3); MONO # 0.8 10*3/uL (0.1-1.0); MONO % 12.2 % (3.0-9.0); NEUT # 4.9 10*3/uL (2.3-7.9); NEUT % 71.9 % (47.0-73.0); PLATELET COUNT AUTOMATED 281 10*3/uL (130-400); RED BLOOD COUNT 3.03 10*6/uL (4.10-5.10); RED CELL DISTRI WIDTH 13.6 % (0-14.5); WHITE BLOOD COUNT 6.9 10*3/uL (4.8-10.8)
[2020-11-11 06:48] LABS: BUN 30 mg/dl (7-24); CHLORIDE 102 mmol/L (98-107); CREATININE 0.78 mg/dL (0.55-1.02); SODIUM 139 mmol/L (136-145)
[2020-11-11 08:00] VITALS: BP 107/48
[2020-11-11 12:00] VITALS: BP 108/49
[2020-11-11 16:00] VITALS: BP 115/57
[2020-11-11 20:00] VITALS: BP 97/51
[2020-11-12] VITALS: BP 96/56
[2020-11-12 06:46] LABS: BUN 22 mg/dl (7-24); CHLORIDE 103 mmol/L (98-107); CREATININE 0.87 mg/dL (0.55-1.02); POTASSIUM 4.3 mmol/L (3.5-5.1); SODIUM 139 mmol/L (136-145)
[2020-11-12 08:00] VITALS: BP 113/58
[2020-11-12] MEDS ORDERED: BUPRENORPHINE1 EAC2 TD (08:45)
[2020-11-12 12:00] VITALS: BP 112/64
[2020-11-12 16:00] VITALS: BP 112/62
[2020-11-12 20:00] VITALS: BP 106/52
[2020-11-13] VITALS: BP 104/54
[2020-11-13 07:09] LABS: BUN 17 mg/dl (7-24); CHLORIDE 100 mmol/L (98-107); CREATININE 0.74 mg/dL (0.55-1.02); POTASSIUM 3.5 mmol/L (3.5-5.1); SODIUM 136 mmol/L (136-145)
[2020-11-13 08:00] VITALS: BP 100/46
== END 2020-11-13 12:43 ==
LOC: ED 13:22 → EDHOLD 16:29 → 5E 16:29
PROVIDERS: Internal Medicine; Nurse Practitioner Family; Student in an Organized Health Care Education/Training Program; ADMIT Internal Medicine; ATTEND Internal Medicine
DX: R62.7 Adult failure to thrive (principal); L03.116 Cellulitis of left lower limb; L03.115 Cellulitis of right lower limb; R58 Hemorrhage, not elsewhere classified; E87.70 Fluid overload, unspecified; E43 Unspecified severe protein-calorie malnutrition; E66.01 Morbid (severe) obesity due to excess calories; Q82.0 Hereditary lymphedema; E78.2 Mixed hyperlipidemia; M81.0 Age-related osteoporosis without current pathological fracture; N39.0 Urinary tract infection, site not specified; E87.5 Hyperkalemia; E87.1 Hypo-osmolality and hyponatremia; I10 Essential (primary) hypertension; L57.8 Other skin changes due to chronic exposure to nonionizing radiation; R53.1 Weakness; E88.09 Other disorders of plasma-protein metabolism, not elsewhere classified; R60.9 Edema, unspecified; Z68.37 Body mass index [BMI] 37.0-37.9, adult; Z20.828 Contact with and (suspected) exposure to other viral communicable diseases

== ENCOUNTER → 2020-12-03 | Outpatient (CLI) | payer MEDICARE ==
[~2020-12-03] MED LIST changes: +BUMETANIDE1 MG PO; +BUPRENORPHINE1 EAC2 TD
== END | disposition home or self-care (01) ==
LOC: WOUNDCARE 02:07
PROVIDERS: ATTEND Surgery
DX: I87.313 Chronic venous hypertension (idiopathic) with ulcer of bilateral lower extremity (principal); L97.822 Non-pressure chronic ulcer of other part of left lower leg with fat layer exposed; L97.812 Non-pressure chronic ulcer of other part of right lower leg with fat layer exposed; L03.115 Cellulitis of right lower limb; L03.116 Cellulitis of left lower limb; I89.0 Lymphedema, not elsewhere classified

== ENCOUNTER 2020-12-17 13:12 | Emergency (ER) | payer MEDICARE ==
[~2020-12-17] VITALS: Ht 152.4 cm; Wt 93.0 kg
[2020-12-17 13:14] VITALS: BP 113/48
[2020-12-17 14:01] LABS: BASO % 0.2 % (0.0-1.0); HEMATOCRIT 26.7 % (37.0-47.0); LYMPH # 1.4 10*3/uL (1.3-4.4); MEAN CORPUSCULAR HGB 29.2 pg (27.0-31.0); MEAN CORPUSCULAR HGB CONC 30.7 g/dl (33.0-37.0); MEAN PLATELET VOLUME 9.2 fl (9.6-12.3); MONO # 1.1 10*3/uL (0.1-1.0); MONO % 12.6 % (3.0-9.0); NEUT # 5.8 10*3/uL (2.3-7.9); NEUT % 68.8 % (47.0-73.0); PLATELET COUNT AUTOMATED 289 10*3/uL (130-400); RED BLOOD COUNT 2.81 10*6/uL (4.10-5.10); RED CELL DISTRI WIDTH 15.3 % (0-14.5); WHITE BLOOD COUNT 8.5 10*3/uL (4.8-10.8)
[2020-12-17 14:20] LABS: ALBUMIN 1.7 gm/dl (3.1-4.5); ALKALINE PHOSPHATASE 67 U/L (45-117); BUN 28 mg/dl (7-24); CHLORIDE 105 mmol/L (98-107); CREATININE 1.01 mg/dL (0.55-1.02); LIPASE 42 U/L (73-393); POTASSIUM 4.8 mmol/L (3.5-5.1); SGOT/AST 13 IU/L (3-35); SGPT/ALT 6 U/L (12-78); SODIUM 139 mmol/L (136-145); TOTAL PROTEIN 5.9 gm/dL (6.4-8.2)
[2020-12-17 14:21] LABS: TROPONIN I < 0.015 ng/ml (<0.045)
[2020-12-17 14:34] LABS: ACT PARTIAL THROMBO TIME 23.2 SECONDS (20.0-32.1)
== END 2020-12-17 20:30 ==
LOC: ED 13:12
PROVIDERS: Emergency Medicine
DX: R58 Hemorrhage, not elsewhere classified (principal); E11.9 Type 2 diabetes mellitus without complications; I50.9 Heart failure, unspecified; Z88.0 Allergy status to penicillin; Z88.5 Allergy status to narcotic agent; Z88.8 Allergy status to other drugs, medicaments and biological substances; Z79.2 Long term (current) use of antibiotics; Z79.899 Other long term (current) drug therapy; Z79.82 Long term (current) use of aspirin; Z90.49 Acquired absence of other specified parts of digestive tract; Z98.890 Other specified postprocedural states

== ENCOUNTER 2021-06-15 17:15 | Emergency (ER) | payer MEDICARE ==
[~2021-06-15] VITALS: Wt 100.7 kg
[2021-06-15 18:01] LABS: BASO % 0.4 % (0.0-1.0); EOS # 0.1 10*3/uL (0.0-0.4); EOS % 0.7 % (1.0-4.0); HEMATOCRIT 38.8 % (37.0-47.0); LYMPH # 1.9 10*3/uL (1.3-4.4); MEAN CELL VOLUME 92.2 fl (81.0-99.0); MEAN CORPUSCULAR HGB CONC 31.4 g/dl (33.0-37.0); MEAN PLATELET VOLUME 9.3 fl (9.6-12.3); MONO # 1.1 10*3/uL (0.1-1.0); MONO % 11.2 % (3.0-9.0); NEUT # 6.8 10*3/uL (2.3-7.9); PLATELET COUNT AUTOMATED 254 10*3/uL (130-400); RED BLOOD COUNT 4.21 10*6/uL (4.10-5.10); RED CELL DISTRI WIDTH 15.6 % (0-14.5)
[2021-06-15 18:19] LABS: ALBUMIN 2.8 gm/dl (3.1-4.5); ALKALINE PHOSPHATASE 51 U/L (45-117); BUN 26 mg/dl (7-24); CHLORIDE 106 mmol/L (98-107); CREATININE 0.75 mg/dL (0.55-1.02); LIPASE 51 U/L (73-393); POTASSIUM 3.7 mmol/L (3.5-5.1); SGOT/AST 17 IU/L (3-35); SGPT/ALT 19 U/L (12-78); SODIUM 140 mmol/L (136-145); TOTAL PROTEIN 6.7 gm/dL (6.4-8.2); TROPONIN I 0.016 ng/ml (<0.045)
[2021-06-15 18:24] LABS: BILIRUBIN Negative (Negative); BLOOD 2+ (Negative); CLARITY Turbid (Clear); COLOR Yellow (Yellow); GLUCOSE Negative (Negative); KETONE Negative (Negative); LEUKO ESTERASE 3+ (Negative); NITRITE Positive (Negative); PH 7.5 (4.5-8.0)
[2021-06-15 18:35] LABS: WBC TNTC wbc/hpf (0-5)
[2021-06-15 18:36] LABS: BACTERIA 2+; RBC TNTC rbc/hpf (0-2)
[2021-06-15] MEDS ORDERED: CIPRO500 MG PO (20:04)
[2021-06-15] MEDS ORDERED: KENALOG 0.025%15 GM T (20:04)
[2021-06-15 20:12] VITALS: BP 116/60
== END 2021-06-15 20:35 ==
LOC: ED 17:15
PROVIDERS: Nurse Practitioner Family
DX: N39.0 Urinary tract infection, site not specified (principal); L25.9 Unspecified contact dermatitis, unspecified cause; E11.22 Type 2 diabetes mellitus with diabetic chronic kidney disease; I13.0 Hypertensive heart and chronic kidney disease with heart failure and stage 1 through stage 4 chronic kidney disease, or unspecified chronic kidney disease; N18.9 Chronic kidney disease, unspecified; I50.9 Heart failure, unspecified; Z88.0 Allergy status to penicillin; Z88.5 Allergy status to narcotic agent; Z88.1 Allergy status to other antibiotic agents; Z88.8 Allergy status to other drugs, medicaments and biological substances; Z79.2 Long term (current) use of antibiotics; Z79.899 Other long term (current) drug therapy; Z79.82 Long term (current) use of aspirin; Z90.49 Acquired absence of other specified parts of digestive tract; Z98.890 Other specified postprocedural states